=== PATIENT | male | born 1990 | race Caucasian/White ===

== ENCOUNTER 2020-07-12 05:59 | Emergency (ER) | payer SELFPAY ==
[~2020-07-12] VITALS: Ht 188 cm; Wt 113.6 kg
[~2020-07-12 05:59] MED LIST: BUSP30TA PO; SERT25TA PO
[2020-07-12] MEDS ORDERED: AMOX1TAB61 PO (06:44)
--- NOTE | 2020-07-12 06:46 | PHYS DOC ---
Past History Past Medical History: Depression Past Surgical History: No Surgical History Smoking: Less than 1pk/day Alcohol Use: None Drug Use: None General Adult EDM: Chief Complaint: SKIN PROBLEM HPI: HPI: Patient is a 29-year-old male presenting for a rash to his lower left lateral trunk. Patient states he noticed the rash 26 hours prior to arrival. Had a blister with surrounding erythema that he popped. Clear fluid came out. Denies any purulent drainage. Denies any prior trauma to the area, scratches, blisters or other lesions. States he has not had any systemic complaints. No history of abscesses. Otherwise been well without significant past medical history. Review of Systems: Review of Systems: All other systems within normal limits except for as noted in the HPI Allergies: Allergies: Allergies Coded Allergies Type Severity Reaction Last Updated Verified Sulfa (Sulfonamide Antibiotics) Allergy Unknown Itching 02/14/13 Yes Physical Exam: PE: Constitutional: Well developed, well nourished, no acute distress, non-toxic appearance. [] HENT: Normocephalic, atraumatic, bilateral external ears normal, nose normal. [] Eyes: PERRLA, conjunctiva normal, no discharge. [] Neck: No rigidity, supple, no stridor. [] Cardiovascular: Regular rate and rhythm, brisk cap refill [] Lungs & Thorax: Non labored symmetric respirations, no tachypnea or respiratory distress [] Abdomen: Soft, nondistended. Skin: Warm, proximately 5 x 10 cm area of erythema with induration on left lower flank. 1 to 2 cm area of ulceration, 2 other clear fluid appearing filled blisters. Back: Unremarkable Extremities: No deformities, range of motion grossly intact, no lower extremity edema [] Neurologic: Alert and oriented X 3, no focal deficits noted. [] Psychologic: Affect normal, judgement normal, mood normal. [] EKG: EKG: [] Radiology/Procedures: Radiology/Procedures: [] Heart Score: C/O Chest Pain: No Risk Factors: Risk Factors: DM, Current or recent (<one month) smoker, HTN, HLP, family history of CAD, obesity. Risk Scores: Score 0 - 3: 2.5% MACE over next 6 weeks - Discharge Home Score 4 - 6: 20.3% MACE over next 6 weeks - Admit for Clinical Observation Score 7 - 10: 72.7% MACE over next 6 weeks - Early Invasive Strategies Course & Med Decision Making: Course & Med Decision Making Bulla appear to be clear liquid filled, no signs of purulence, abscess, hemorrhagic bullae. Per pictures patient provided there is been no significant spread over the past 24 hours. Temperature slightly elevated. Treat for bullous impetigo based on exam. Dragon Disclaimer: Dragon Disclaimer: This electronic medical record was generated, in whole or in part, using a voice recognition dictation system. Departure Departure: Impression: Primary Impression: Bullous impetigo Disposition: HOME / SELF CARE / HOMELESS Condition: STABLE Referrals: PCP,NO (PCP) Patient Instructions: Impetigo Additional Instructions: Return to emergency department if worsening symptoms. Scripts Amoxicillin/Potassium Clav (AUGMENTIN 875-125 TABLET) 1 Each Tablet 1 TAB PO BID for antibiotic for 10 Days, #20 TAB 0 Refills Prov: NBA HERNÁNDEZ MD 07/12/20 NBA HERNÁNDEZ MD July 12, 2020 06:46
[2020-07-12 06:56] VITALS: BP 130/88
[2020-07-12] MEDS ORDERED: cefTRIAXone IM 1 GM VIAL IM ONE (07:00)
== END 2020-07-12 07:00 | disposition home or self-care (01) ==
LOC: ER 05:59
DX: L01.03 Bullous impetigo (principal); F17.200 Nicotine dependence, unspecified, uncomplicated; Z88.2 Allergy status to sulfonamides
CPT/HCPCS: 96372; 99283; J0696

== ENCOUNTER 2020-11-25 05:44 | Emergency (ER) | payer SELFPAY ==
[~2020-11-25] VITALS: Ht 185.4 cm; Wt 114.7 kg
[~2020-11-25 05:44] MED LIST changes: +AMOX1TAB61 PO
--- NOTE | 2020-11-25 06:07 | EKG ---
[address] [address] Test Date: 2020-11-25 Test Time: 05:49:51 Pat Name: JOSE DANIEL CERNSHAW Department: Room: Gender: M Hr Specialist: : [id number] Requested By: RAYMUNDO HAMPTON Order Number: [id number] Reading MD: Esteban Tovar Measurements Intervals [place] Rate: 113 P: 54 NM: 158 QRS: 76 QRSD: 84 T: 26 QT: 330 QTc: 458 Interpretive Statements SINUS TACHYCARDIA LOW LIMB LEAD VOLTAGE Electronically Signed On 11-29-2020 12:49:50 CDT by Esteban Tovar
--- NOTE | 2020-11-25 06:13 | PHYS DOC ---
Past History Past Medical History: Depression Past Surgical History: Other Smoking: Less than 1pk/day Alcohol Use: None Drug Use: None General Adult EDM: Chief Complaint: CHEST PAIN HPI: HPI: 29-year-old male presents with chest pain. Patient has been having episodes of sharp stabbing chest pain since he got his Pfizer COVID-19 first vaccine about 3 weeks ago. The reason he came in this morning is because "I have been putting it off because I do not like hospitals." The pain is moderate in intensity and lasts for less than a minute. Sometimes is only a few seconds. These episodes seem to happen at random. He has not noticed a pattern that makes them better or worse. He also has some shortness of breath with this pain. The patient has acid reflux and a sensitive gag reflex at baseline. He also tells me that he has "digestive issues". No known cardiac history. No significant lung history. He denies ever having a blood clot. Denies fever or chills. Review of Systems: Review of Systems: Constitutional: Denies fever or chills Eyes: Denies change in visual acuity HENT: Denies nasal congestion or sore throat Respiratory: shortness of breath Cardiovascular: Chest pain GI: Denies abdominal pain, nausea, vomiting, bloody stools or diarrhea : Denies dysuria Musculoskeletal: Denies back pain or joint pain Integument: Denies rash Neurologic: Denies headache, focal weakness or sensory changes Endocrine: Denies polyuria or polydipsia Lymphatic: Denies swollen glands Psychiatric: Anxiety Allergies: Allergies: Allergies Coded Allergies Type Severity Reaction Last Updated Verified Sulfa (Sulfonamide Antibiotics) Allergy Unknown Itching 02/14/13 Yes Physical Exam: PE: Constitutional: Well developed, well nourished, obese, no acute distress, non- toxic appearance. [] HENT: Normocephalic, atraumatic, bilateral external ears normal, oropharynx moist, no oral exudates, nose normal. Poor dentition. [] Eyes: PERRLA, EOMI, conjunctiva normal, no discharge. [] Neck: Normal range of motion, no tenderness, supple, no stridor. [] Cardiovascular: Heart rate 115, regular rhythm, no murmur [] Lungs & Thorax: Bilateral breath sounds clear to auscultation [] Abdomen: Bowel sounds normal, soft, no tenderness, no masses, no pulsatile masses. [] Skin: Warm, dry, no erythema, no rash. [] Back: No tenderness, no CVA tenderness. [] Extremities: No tenderness, no cyanosis, no clubbing, ROM intact, no edema. [] Neurologic: Alert and oriented X 3, normal motor function, normal sensory function, no focal deficits noted. [] Psychologic: Affect Asperger's, judgement normal, mood anxious. [] Current Patient Data: Vital Signs: Vital Signs Date Time Temp Pulse Resp B/P (MAP) Pulse Ox O2 Delivery O2 Flow Rate FiO2 11/25/20 05:56 97.9 111 18 146/95 (112) 97 Room Air EKG: EKG: Sinus rhythm, rate 113, normal axis, no ST elevation or depression. [] Radiology/Procedures: Radiology/Procedures: [] Impressions: Single view chest dated 11/25/2020 6:19 AM: COMPARISON: 02/14/2013 Clinical Indication: Chest pain. Findings: Single upright portable exam of the chest was performed. Heart and mediastinal contours are stable. There are some prominent linear bibasilar markings, similar to prior study. No consolidation or pleural effusion. No pneumothorax IMPRESSION: 1. No acute radiographic abnormality. Stable findings compared to 02/14/2013 Electronically signed by: Justyn Quinteros MD (11/25/2020 6:20 AM) [facility] [place] DICTATED AND SIGNED BY: JUSTYN QUINTEROS MD DATE: 11/25/20 0619 CC: RAYMUNDO HAMPTON DO; PCP,NO ~MTH0 0 INDICATION: Reason: Tachycardia, elevated D-dimer / Spl. Instructions: OMNI 350 100ML, GFR >60 / History: COMPARISON: Chest x-ray January 2013 TECHNIQUE: Axial CT images obtained through the chest. Intravenous contrast utilized. Angiogram 3D images processed per protocol. One or more of the following individualized dose reduction techniques were utilized for this examination: 1. Automated exposure control; 2. Adjustment of the mA and/or kV according to patient size; 3. Use of iterative reconstruction technique. FINDINGS: Dependent airspace opacities. Portion of ascending thoracic aorta obscured by motion but no aneurysm seen. 3 mm left lower lung pulmonary nodule. No central pulmonary embolus. There is some limitation peripherally secondary to contrast bolus timing and motion. IMPRESSION: No central pulmonary embolus. Mild groundglass opacities are seen dependently most likely atelectasis given location. 3 mm right lung nodule. Fleischner Society recommendations for solitary solid lung nodule follow up.: In a low risk patient: <6mm - No follow up required. 6-8mm - 6-[address], then CT at 18-24 months. >8mm - CT at 3 months, PET/CT or tissue sampling. In a high risk patient (history of smoking or other known risk factors): <6mm - Follow up CT at 12 months. 6-8mm - 6-[address], then CT at 18-24 months. >8mm - CT at 3 months, PET/CT or tissue sampling. Fleischner Society recommendations for multiple solid lung nodule follow up.: In a low risk patient: <6mm - No follow up required. 6-8mm - 3-[address], then CT at 18-24 months. >8mm - CT at 3-6 months, then at 18-24 months. PET/CT or tissue sampling based on most suspicious nodule. In a high risk patient (history of smoking or other known risk factors): <6mm - Follow up CT at 12 months. 6-8mm - 3-[address], then CT at 18-24 months. >8mm - CT at 3-6 months, PET/CT or tissue sampling option based on most suspicious nodule. Electronically signed by: Erna Esposito MD (11/25/2020 9:36 AM) [id number] DICTATED AND SIGNED BY: ERNA ESPOSITO MD DATE: 11/25/20922 CC: RAYMUNDO HAMPTON DO; PCP,NO ~MTH0 0 Heart Score: C/O Chest Pain: Yes HEART Score for Chest Pain: HEART Score for Chest Pain Response (Comments) Value History Slighlty/Non-Suspicious 0 ECG Normal 0 Age < 45 0 Risk Factors 1 or 2 Risk Factors 1 Troponin < Normal Limit 0 Total 1 Risk Factors: Risk Factors: DM, Current or recent (<one month) smoker, HTN, HLP, family history of CAD, obesity. Risk Scores: Score 0 - 3: 2.5% MACE over next 6 weeks - Discharge Home Score 4 - 6: 20.3% MACE over next 6 weeks - Admit for Clinical Observation Score 7 - 10: 72.7% MACE over next 6 weeks - Early Invasive Strategies Course & Med Decision Making: Course & Med Decision Making Pertinent Labs and Imaging studies reviewed. (See chart for details) The patient's EKG is remarkable for a rate of 113, sinus, no ST elevation. I ordered a liter of normal saline. The patient continues to be tacky at 113. His oxygen saturation is 97% on room air. His labs are unremarkable except for his D-dimer which is slightly elevated. His troponin is negative. Given these findings, I will do a CT angiogram of the chest to rule out pulmonary embolus. The patient's CTA is negative for PE. He has a small 3 mm nodule. See official read for more details. His urinalysis is negative for infection. Urine drug screen is negative. The patient's symptoms are likely musculoskeletal, or heartburn, or anxiety. It does not appear to be cardiopulmonary at this time. He is stable for discharge. [] Herminiaon Disclaimer: Dragmarcos Disclaimer: This electronic medical record was generated, in whole or in part, using a voice recognition dictation system. Departure Departure: Impression: Primary Impression: Chest pain Qualified Codes: R07.9 - Chest pain, unspecified Disposition: HOME / SELF CARE / HOMELESS Condition: STABLE Referrals: PCPKERI (PCP) Patient Instructions: Chest Pain (Nonspecific), [id number] RAYMUNDO HAMPTON DO Nov 25, 2020 06:13
--- NOTE | 2020-11-25 06:23 | RAD ---
Single view chest dated 11/25/2020 6:19 AM: COMPARISON: 02/14/2013 Clinical Indication: Chest pain. Findings: Single upright portable exam of the chest was performed. Heart and mediastinal contours are stable. T here are some prominent linear bibasilar markings, similar to prior study. No consolidation or pleura l effusion. No pneumothorax IMPRESSION: 1. No acute radiographic abnormality. Stable findings compared to 02/14/2013 Electronically signed by: Justyn Quinteros MD (11/25/2020 6:20 AM) LEENA
[2020-11-25] MEDS ORDERED: IV NORMAL SALINE 1,000ML 1,000 ML IV ONE ×2 (06:30→08:30)
[2020-11-25] MEDS ORDERED: KETOROLAC 30 MG/ML VIAL. IVP ONE (06:30)
[2020-11-25] MEDS ORDERED: PANTOPRAZOLE IV 40 MG VIAL. IVP ONE (06:30)
[2020-11-25] MEDS ORDERED: FAMOTIDINE 20 MG/2 ML VIAL IVP ONE (06:30)
[2020-11-25 07:21] LABS: BASO # 0.1 x10^3/uL (0.0-0.2); BASO % 1 % (0-3); EOS # 0.1 x10^3/uL (0.0-0.7); EOS % 1 % (0-3); HEMATOCRIT 46.9 % (39.0-53.0); HEMOGLOBIN 15.9 g/dL (13.0-17.5); LYMPH # 3.4 x10^3/uL (1.0-4.8); LYMPH % 29 % (24-48); MEAN CORPUSCULAR HEMOGLOBIN 33 pg (25-35); MEAN CORPUSCULAR HGB CONC 34 g/dL (31-37); MEAN CORPUSCULAR VOLUME 96 fL (79-100); MONO # 0.7 x10^3/uL (0.0-1.1); MONO % 6 % (0-9); NEUT # 7.5 x10^3uL (1.8-7.7); NEUT % 64 % (31-73); PLATELET COUNT 316 x10^3/uL (140-400); RED BLOOD COUNT 4.87 x10^6/uL (4.30-5.70); RED CELL DISTRIBUTION WIDTH 13.3 % (11.5-14.5); WHITE BLOOD COUNT 11.8 x10^3/uL (4.0-11.0)
[2020-11-25 07:29] LABS: CALCIUM 8.9 mg/dL (8.5-10.1); CREATININE 0.8 mg/dL (0.7-1.3)
[2020-11-25 07:30] LABS: GFR 112.8; POTASSIUM 3.6 mmol/L (3.5-5.1)
[2020-11-25 07:35] LABS: ALBUMIN 3.5 g/dL (3.4-5.0); ALBUMIN/GLOBULIN RATIO 0.9 (1.0-1.7); TOTAL BILIRUBIN 0.3 mg/dL (0.2-1.0); TOTAL PROTEIN 7.3 g/dL (6.4-8.2)
[2020-11-25] MEDS ORDERED: IOHEXOL 350 MG/ML 100 ML VIAL. IV ONE (08:30)
[2020-11-25] MEDS ORDERED: CONTRAST GIVEN. MC PRN (08:30)
[2020-11-25 08:52] LABS: BARBITURATES NEG (NEG); BENZODIAZEPINES NEG (NEG); CANNABINOIDS NEG (NEG); COCAINE NEG (NEG); METHADONE NEG (NEG); OPIATES NEG (NEG); PHENCYCLIDINE NEG (NEG)
[2020-11-25 08:54] LABS: AMPHETAMINE/METHAMPHETAMINE NEG (NEG)
[2020-11-25 09:16] LABS: BACTERIA,URINE 0 /HPF (0-FEW); BILIRUBIN,URINE SMALL (NEG); CLARITY,URINE CLOUDY; COLOR,URINE AMBER; GLUCOSE,URINE NEG (NEG); NITRITE,URINE NEG (NEG); RBC,URINE 0 /HPF (0-2); WBC,URINE OCC /HPF (0-4)
--- NOTE | 2020-11-25 09:38 | RAD ---
INDICATION: Reason: Tachycardia, elevated D-dimer / Spl. Instructions: OMNI 350 100ML, GFR >60 / Hist ory: COMPARISON: Chest x-ray January 2013 TECHNIQUE: Axial CT images obtained through the chest. Intravenous contrast utilized. Angiogram 3D images proce ssed per protocol. One or more of the following individualized dose reduction techniques were utilized for this examinat ion: 1. Automated exposure control; 2. Adjustment of the mA and/or kV according to patient size; 3 . Use of iterative reconstruction technique. FINDINGS: Dependent airspace opacities. Portion of ascending thoracic aorta obscured by motion but no aneurysm seen. 3 mm left lower lung pulmonary nodule. No central pulmonary embolus. There is some limitation periphe rally secondary to contrast bolus timing and motion. IMPRESSION: No central pulmonary embolus. Mild groundglass opacities are seen dependently most likely atelectasis given location. 3 mm right lung nodule. Fleischner Society recommendations for solitary solid lung nodule follow up.: In a low risk patient: <6mm - No follow up required. 6-8mm - 6-[address], then CT at 18-24 months. >8mm - CT at 3 months, PET/CT or tissue sampling. In a high risk patient (history of smoking or other known risk factors): <6mm - Follow up CT at 12 months. 6-8mm - 6-[address], then CT at 18-24 months. >8mm - CT at 3 months, PET/CT or tissue sampling. Fleischner Society recommendations for multiple solid lung nodule follow up.: In a low risk patient: <6mm - No follow up required. 6-8mm - 3-[address], then CT at 18-24 months. >8mm - CT at 3-6 months, then at 18-24 months. PET/CT or tissue sampling based on most suspicious no dule. In a high risk patient (history of smoking or other known risk factors): <6mm - Follow up CT at 12 months. 6-8mm - 3-[address], then CT at 18-24 months. >8mm - CT at 3-6 months, PET/CT or tissue sampling option based on most suspicious nodule. Electronically signed by: Chip Davis MD (11/25/2020 9:36 AM) [id number]
[2020-11-25 09:56] VITALS: BP 134/73
== END 2020-11-25 09:58 | disposition home or self-care (01) ==
LOC: ER 05:44
DX: R07.89 Other chest pain (principal); R06.02 Shortness of breath; F32.9 Major depressive disorder, single episode, unspecified; F17.200 Nicotine dependence, unspecified, uncomplicated; Z88.2 Allergy status to sulfonamides
CPT/HCPCS: 36415; 71045; 71275; 80053; 80307; 81001; 84484; 85025; 85379; 93005; 96361; 96374; 96375; 99285; C9113; J1885; J2060; J3490; J7030; Q9967